=== PATIENT | male | born 1995 | race Caucasian/White ===

== ENCOUNTER 2017-06-27 13:35 | Emergency (ER) | payer MEDICAID ==
[2017-06-27 16:27] VITALS: BP 131/83
== END 2017-06-27 16:27 | disposition home or self-care (01) ==
LOC: ED 13:35
DX: S01.81XA Laceration without foreign body of other part of head, initial encounter (principal); W18.39XA Other fall on same level, initial encounter; Y93.89 Activity, other specified; Y92.89 Other specified places as the place of occurrence of the external cause; Y99.8 Other external cause status
CPT/HCPCS: 90715; J2001